=== PATIENT | male | born 1995 | race Caucasian/White ===

== ENCOUNTER 2017-03-28 07:01 | Emergency (ER) | payer OTHER ==
[~2017-03-28] VITALS: Ht 188 cm; Wt 74.8 kg
[2017-03-28 07:30] LABS: HEMATOCRIT 46.8 % (42.0-52.0); HEMOGLOBIN 15.6 gm/dL (14.0-18.0); MCHC 33.4 g/dL (28.0-37.0); MCV 86.8 fL (80.0-100.0); MPV 7.8 fl. (7.2-11.1); NUCLEATED RBCS 0 /100WBC; PLATELET COUNT* 272 thou/uL (150-400); RBC 5.39 mil/uL (4.50-6.00); RDW-CV 13.3 % (10.5-14.5); WBC 16.6 thou/uL (4.0-11.0)
[2017-03-28 07:35] LABS: CALCIUM 9.7 mg/dL (8.5-10.1); CREATININE 1.4 mg/dL (0.6-1.3); POTASSIUM 3.6 mmol/L (3.5-5.1)
[2017-03-28 07:39] LABS: TOTAL BILIRUBIN 1.8 mg/dL (<0.1-1.0); TOTAL PROTEIN 8.7 g/dL (6.4-8.2)
[2017-03-28 07:49] LABS: ABSOLUTE LYMPHOCYTES 0.7 thou/uL (0.8-5.3); ABSOLUTE MONOCYTES 0.8 thou/uL (0.0-1.2); ABSOLUTE NEUTROPHILS 15.1 thou/uL (1.6-8.1); PLATELET ESTIMATE ADEQUATE
[2017-03-28 08:03] LABS: URINE BLOOD NEGATIVE (Negative); URINE CLARITY CLEAR; URINE COLOR DARK YELLOW; URINE GLUCOSE-RANDOM NEGATIVE (Negative); URINE KETONES TRACE (Negative); URINE LEUKOCYTES-REFLEX NEGATIVE (Negative); URINE NITRITE-REFLEX NEGATIVE (Negative); URINE PROTEIN 1+ (Negative); URINE SPECIFIC GRAVITY 1.025 (1.005-1.030); URINE UROBILINOGEN 0.2 E.U./dl (0.2-1.0)
[2017-03-28 08:05] LABS: URINE BILIRUBIN 1+ (Negative)
[2017-03-28 08:23] LABS: ICTOTEST (BILI CONFIRMATORY) Negative (Negative)
[2017-03-28] MEDS ORDERED: PHENERGAN 25 MG25 M1 PO (08:47)
[2017-03-28 09:17] VITALS: BP 104/60
== END 2017-03-28 09:19 | disposition home or self-care (01) ==
LOC: M.ERS 07:01
PROVIDERS: Personal Emergency Response Attendant
DX: K52.9 Noninfective gastroenteritis and colitis, unspecified (principal)

== ENCOUNTER 2018-09-08 11:18 | Emergency (ER) | payer BC ==
[~2018-09-08] VITALS: Ht 188 cm; Wt 72.6 kg
[~2018-09-08 11:18] MED LIST: PHENERGAN 25 MG25 M1 PO
[2018-09-08 12:35] LABS: HEMATOCRIT 38.6 % (42.0-52.0); HEMOGLOBIN 12.6 gm/dL (14.0-18.0); MCH 27.9 pg (26.0-34.0); MCHC 32.8 g/dL (28.0-37.0); MCV 85.3 fL (80.0-100.0); MPV 6.8 fl. (7.2-11.1); NUCLEATED RBCS 0 /100WBC; PLATELET COUNT* 220 thou/uL (150-400); RBC 4.52 mil/uL (4.50-6.00); RDW-CV 13.9 % (10.5-14.5); WBC 8.7 thou/uL (4.0-11.0)
[2018-09-08 12:48] LABS: INFLUENZA A ANTIGEN None Detected (None Detect); INFLUENZA B ANTIGEN None Detected (None Detect)
[2018-09-08 12:48] LABS: CALCIUM 8.7 mg/dL (8.5-10.1); CREATININE 0.8 mg/dL (0.6-1.3); POTASSIUM 3.7 mmol/L (3.5-5.1)
[2018-09-08 12:58] LABS: ALBUMIN 3.5 g/dL (3.4-5.0); TOTAL BILIRUBIN 0.6 mg/dL (<0.1-1.0)
[2018-09-08] MEDS ORDERED: ONDANSETRON HCL4 M2 PO (13:02)
[2018-09-08] MEDS ORDERED: AMOXICILLIN 50500 MG PO (13:02)
[2018-09-08 13:19] VITALS: BP 117/69
[2018-09-08 13:26] LABS: ABSOLUTE BASOPHILS 0.1 thou/uL (0.0-0.2); ABSOLUTE EOSINOPHILS 0.1 thou/uL (0.0-0.7); ABSOLUTE LYMPHOCYTES 5.5 thou/uL (0.8-5.3); ABSOLUTE MONOCYTES 0.3 thou/uL (0.0-1.2); ABSOLUTE NEUTROPHILS 2.8 thou/uL (1.6-8.1); ATYPICAL LYMPHS 18 %; METAMYELOCYTES 1 %; PLATELET ESTIMATE ADEQUATE
== END 2018-09-08 13:19 | disposition home or self-care (01) ==
LOC: M.ERS 11:18
PROVIDERS: Nurse Practitioner Family
DX: G43.909 Migraine, unspecified, not intractable, without status migrainosus (principal); J02.0 Streptococcal pharyngitis; R11.2 Nausea with vomiting, unspecified; R19.7 Diarrhea, unspecified

== ENCOUNTER 2018-10-28 14:23 | Emergency (ER) | payer BC ==
[~2018-10-28] VITALS: Ht 188 cm; Wt 74.8 kg
[~2018-10-28 14:23] MED LIST changes: +AMOXICILLIN 50500 MG PO; +ONDANSETRON HCL4 M2 PO
[2018-10-28 15:05] LABS: URINE BILIRUBIN NEGATIVE (Negative); URINE BLOOD NEGATIVE (Negative); URINE CLARITY CLEAR; URINE COLOR YELLOW; URINE GLUCOSE-RANDOM NEGATIVE (Negative); URINE KETONES TRACE (Negative); URINE LEUKOCYTES-REFLEX NEGATIVE (Negative); URINE NITRITE-REFLEX NEGATIVE (Negative); URINE PROTEIN NEGATIVE (Negative); URINE SPECIFIC GRAVITY 1.025 (1.005-1.030); URINE UROBILINOGEN 0.2 E.U./dl (0.2-1.0)
[2018-10-28 15:21] LABS: ABSOLUTE EOSINOPHILS 0.1 thou/uL (0.0-0.7); ABSOLUTE LYMPHOCYTES 2.3 thou/uL (0.8-5.3); ABSOLUTE MONOCYTES 0.8 thou/uL (0.0-1.2); ABSOLUTE NEUTROPHILS 6.8 thou/uL (1.6-8.1); BASOPHILS 0.5 %; EOSINOPHILS 0.6 %; HEMATOCRIT 40.9 % (42.0-52.0); HEMOGLOBIN 13.7 gm/dL (14.0-18.0); LYMPHOCYTES 23.4 %; MCH 28.1 pg (26.0-34.0); MCHC 33.4 g/dL (28.0-37.0); MCV 84.1 fL (80.0-100.0); MONOCYTES 7.9 %; NUCLEATED RBCS 0 /100WBC; PLATELET COUNT* 271 thou/uL (150-400); POLYS 67.6 %; RBC 4.86 mil/uL (4.50-6.00); RDW-CV 13.6 % (10.5-14.5)
[2018-10-28 15:36] LABS: CALCIUM 9.2 mg/dL (8.5-10.1); CREATININE 0.8 mg/dL (0.6-1.3)
[2018-10-28 15:41] LABS: ALBUMIN 4.1 g/dL (3.4-5.0); TOTAL BILIRUBIN 0.8 mg/dL (<0.1-1.0); TOTAL PROTEIN 7.8 g/dL (6.4-8.2)
[2018-10-28] MEDS ORDERED: DOXYCYCLINE 10100 MG PO (15:56)
[2018-10-28] MEDS ORDERED: BENTYL 20 MG TA20 M1 PO (15:56)
[2018-10-28 16:23] VITALS: BP 106/59
== END 2018-10-28 16:23 | disposition home or self-care (01) ==
LOC: M.ERS 14:23
PROVIDERS: Nurse Practitioner Family
DX: R10.32 Left lower quadrant pain (principal); R11.2 Nausea with vomiting, unspecified; R19.7 Diarrhea, unspecified

== ENCOUNTER 2019-02-09 09:31 | Emergency (ER) | payer BC ==
[~2019-02-09] VITALS: Ht 188 cm; Wt 74.8 kg
[~2019-02-09 09:31] MED LIST changes: +BENTYL 20 MG TA20 M1 PO; +DOXYCYCLINE 10100 MG PO
[2019-02-09 09:35] VITALS: BP 113/77
== END 2019-02-09 10:02 | disposition home or self-care (01) ==
LOC: M.ERS 09:31
DX: J02.9 Acute pharyngitis, unspecified (principal); F17.210 Nicotine dependence, cigarettes, uncomplicated

== ENCOUNTER 2020-08-25 08:39 | Emergency (ER) | payer OTHER ==
[~2020-08-25] VITALS: Ht 188 cm; Wt 74.8 kg
[2020-08-25 09:00] LABS: ABSOLUTE BASOPHILS 0.1 thou/uL (0.0-0.2); ABSOLUTE EOSINOPHILS 0.1 thou/uL (0.0-0.7); ABSOLUTE LYMPHOCYTES 2.4 thou/uL (0.8-5.3); ABSOLUTE MONOCYTES 0.6 thou/uL (0.0-1.2); ABSOLUTE NEUTROPHILS 3.4 thou/uL (1.6-8.1); BASOPHILS 0.8 %; HEMATOCRIT 41.3 % (42.0-52.0); MCH 28.5 pg (26.0-34.0); MCHC 33.8 g/dL (28.0-37.0); MCV 84.4 fL (80.0-100.0); MONOCYTES 9.7 %; MPV 7.2 fl. (7.2-11.1); NUCLEATED RBCS 0 /100WBC; PLATELET COUNT* 260 thou/uL (150-400); POLYS 51.5 %; RDW-CV 13.5 % (10.5-14.5); WBC 6.6 thou/uL (4.0-11.0)
[2020-08-25 09:09] LABS: CALCIUM 9.2 mg/dL (8.5-10.1); CREATININE 0.8 mg/dL (0.6-1.3); POTASSIUM 3.8 mmol/L (3.5-5.1)
[2020-08-25 09:19] LABS: ALBUMIN 4.5 g/dL (3.4-5.0); TOTAL BILIRUBIN 1.3 mg/dL (<0.1-1.0); TOTAL PROTEIN 7.8 g/dL (6.4-8.2)
[2020-08-25 10:53] VITALS: BP 119/62
--- NOTE | 2020-08-25 15:19 | EKG ---
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: ADOLFO : 1995 Requested By: Sage Schaffer Order Number: [id number] MD: Franco Layton Measurements Intervals [place] Rate: 54 P: 55 OK: 137 QRS: 67 QRSD: 93 T: 49 QT: 427 QTc: 405 Interpretive Statements Sinus bradycardia ST elev, probable normal early repol pattern No previous ECG available for comparison Electronically Signed On 08-25-2020 15:18:52 CDT by Franco Layton [email or web address] <ELECTRONICALLY SIGNED> By: Franco Layton MD, [facility] 08/25/20 1518 0858 [id number] Franco Layton MD, [facility] /EPI
== END 2020-08-25 10:53 | disposition home or self-care (01) ==
LOC: M.ERS 08:39
PROVIDERS: Emergency Medicine Emergency Medical Services
DX: R55 Syncope and collapse (principal); R51.9 Headache, unspecified; F17.210 Nicotine dependence, cigarettes, uncomplicated

== ENCOUNTER 2021-01-10 11:28 | Emergency (ER) | payer OTHER ==
[~2021-01-10] VITALS: Ht 188 cm; Wt 74.8 kg
[2021-01-10 12:12] LABS: HEMATOCRIT 41.8 % (42.0-52.0); HEMOGLOBIN 13.8 gm/dL (14.0-18.0); MCH 28.2 pg (26.0-34.0); MCV 85.7 fL (80.0-100.0); MPV 7.5 fl. (7.2-11.1); NUCLEATED RBCS 0 /100WBC; PLATELET COUNT* 270 thou/uL (150-400); RBC 4.88 mil/uL (4.50-6.00); RDW-CV 14.1 % (10.5-14.5)
[2021-01-10 12:19] LABS: CALCIUM 9.2 mg/dL (8.5-10.1); CREATININE 1.3 mg/dL (0.6-1.3); POTASSIUM 3.6 mmol/L (3.5-5.1)
[2021-01-10 12:24] LABS: ALBUMIN 4.4 g/dL (3.4-5.0); TOTAL BILIRUBIN 1.6 mg/dL (<0.1-1.0)
[2021-01-10] MEDS ORDERED: PROMS25 WY RECTAL (12:36)
[2021-01-10] MEDS ORDERED: PHENERGAN 25 MG25 M1 PO (12:36)
[2021-01-10 12:50] VITALS: BP 109/56
[2021-01-10 12:51] LABS: ABSOLUTE LYMPHOCYTES 0.6 thou/uL (0.8-5.3); ABSOLUTE MONOCYTES 0.3 thou/uL (0.0-1.2); ABSOLUTE NEUTROPHILS 10.1 thou/uL (1.6-8.1); PLATELET ESTIMATE ADEQUATE
== END 2021-01-10 12:50 | disposition home or self-care (01) ==
LOC: M.ERS 11:28
PROVIDERS: Nurse Practitioner Family
DX: R11.10 Vomiting, unspecified (principal); F12.90 Cannabis use, unspecified, uncomplicated; F17.210 Nicotine dependence, cigarettes, uncomplicated